=== PATIENT | female | born 1960 | race Caucasian/White ===

== ENCOUNTER 2024-11-15 09:46 | Emergency (ER) | payer MEDICARE, OTHER, SELFPAY ==
[2024-11-15 09:53] VITALS: BP 140/78
--- NOTE | 2024-11-15 11:03 | ED.GENMED ---
History of Present Illness
General
Chief Complaint: Back Pain
Time Seen by Provider: 11/15/24 10:46
History of Present Illness
History of Present Illness:
Patient is a 64-year-old woman presenting to the emergency department with back pain that goes down her leg. Patient states that earlier in the month she was out visiting her son. 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
she tweaked her back at that time. The pain radiated down her left leg so she went to an urgent care who prescribed her 60 mg of prednisone for 5 days. She states that initially it helped however the pain has not resolved. She has taken Tylenol
Motrin heating pad and iced it. She has been doing physical therapy at home. She states that she is coming in as the pain is still there. No fevers chills. She has been having some paresthesias down the leg. No prior history of sciatica. No
night sweats malignancy. No spinal injections. No saddle anesthesia. No urinary incontinence or retention. She does note that she has been having issues with prolapsed bladder intermittently and does plan to see gynecology.
Phy Exam
Physical Exam
Physical Exam:
GENERAL: in no acute distress
HEENT: normocephalic, extraocular movements intact, moist oral mucosa
NECK: normal inspection
RESPIRATORY: no respiratory distress, clear to auscultation bilaterally
CARDIOVASCULAR: regular rate and rhythm
ABDOMEN/: soft, non-distended, non-tender to palpation, no rebound or guarding
Back: No midline spinal tenderness,
EXTREMITIES: non-tender, no edema/swelling
NEUROLOGIC: awake and alert, moves all extremities, no gross motor or sensory deficits, positive straight leg raise to the left leg
SKIN: warm
Course
Orders/Labs/Results
Orders:
Orders
11/15/24 11:03
Dexamethasone [Decadron] 10 mg PO NOW STA
Ketorolac [Toradol] 15 mg IM NOW STA
Vital Signs
Initial and Last Documented VS:
Initial Vital Signs
Temp Pulse Resp BP Pulse Ox
97.7 F 92 20 140/78 98
11/15/24 09:53 11/15/24 09:53 11/15/24 09:53 11/15/24 09:53 11/15/24 09:53
Last Documented Vital Signs
Temp Pulse Resp BP Pulse Ox
97.7 F 92 20 140/78 98
11/15/24 09:53 11/15/24 09:53 11/15/24 09:53 11/15/24 09:53 11/15/24 09:53
MDM/Problems Addressed
Differential Diagnosis Includes:
64-year-old woman presenting to the emergency department with low back pain that radiates down her left leg. Vitals are unremarkable and exam does have a positive straight leg raise to the left leg. Likely MSK/sciatica. History exam with no red
flags to suggest cauda equina osteomyelitis discitis fracture. History and exam not consistent with aortic pathology or kidney stone. After shared decision making we will treat with Toradol and 1 dose of Decadron. We did discuss risk versus
benefit of another course of steroids. However we will hold off at this time. Patient advised to follow-up with spine surgery as well as to obtain outpatient MRI. We did discuss the role of CT/x-rays and after shared decision making we will hold
off on any further imaging here in the emergency department. Patient will also follow-up with physical therapy for formal exercises.
*Critical Care Note
Total Time (30-74mins, 75-104mins- exclusive of procedures): Not Applicable
ED Attending Note
-
Portions of this chart may have been created with voice recognition software.� Occasional wrong word or��sound alike� substitutions may have occurred due to the inherent limitations of voice recognition software.
Discharge Plan
Departure
Patient Disposition: Home (Routine Discharge)
Date of Disposition: 11/15/24
Time of Disposition: 11:44
Patient with high blood pressure during this ER visit?: No
Discharge Problem:
Sciatica
Instructions: Sciatica (DC)
Referrals:
Farzad Ho, DO [Non-Admitting Privileges] -
Hector Eller DO [Family Provider] -
Leila Bobby MD [Active] -
Activity Restrictions/Additional Instructions:
Your back pain is likely secondary to nerve pain.
You can take ibuprofen 400 mg (2 qwfc-ygf-vexvqxz tablets) every 4 hours or 600 mg (3 mbei-tuq-igelrga tablets) every 6 hours as needed for pain. Take the lowest effective dose -- the 600 mg dose has an anti-inflammatory effect, but evidence
suggests that this dose may not get you better pain control over a 400 mg dose.
You can take Tylenol 1000 mg (3 regular strength tablets or 2 extra strength tablets) every 6 hours as needed for pain up to 3 doses per day.
Wean yourself off of the ibuprofen as soon as your pain is tolerable. This medication, if used long-term, can have negative effects on the kidneys, heart and stomach. Tylenol is the safest medication but does not have the anti-inflammatory component.
Apply a heating pad 15-20 minutes at a time every few hours. Make sure not to sleep with the heating pad on as it can burn your skin. You may also try ice every few hours -- make sure not to apply an icepack directly to the skin. You can alternate
the two as well.
You can apply a lidocaine patch to the painful area every 8 hours as well.
Return to the emergency department if you develop inability to urinate, are unable to hold your stool, have numbness when your wipe yourself after using the bathroom, develop new weakness in the legs, develop a fever, if you have worsening pain or
if you have any increasing concerns.
Please make sure you follow-up with a spine doctor as well as your primary care doctor to get an outpatient MRI completed.
Interventions
Interventions:
*Risk Screen - Suicide Last Done: 11/15/24 09:53
*General Assessment Last Done: 11/15/24 09:53
Discharge Date and Time
Print Language: FIJIAN
[2024-11-15] MEDS: DECADRON 10 MG PO (11:15)
[2024-11-15] MEDS: TORADOL 15 MG IM (11:15)
== END 2024-11-15 12:06 | disposition home or self-care (01) ==
LOC: EMR 09:46
PROVIDERS: EMERGENCY PHYSICIAN Student in an Organized Health Care Education/Training Program; FAMILY PHYSICIAN Family Medicine Adult Medicine
DX: M54.42 Lumbago with sciatica, left side (principal)
CPT/HCPCS: 99284; 96372